=== PATIENT | male | born 1980 | race Caucasian/White ===

== ENCOUNTER 2016-10-14 16:21 | Emergency (ER) | payer OTHER ==
[2016-10-14 16:59] VITALS: BP 129/86
--- NOTE | 2016-10-14 18:10 | UC ---
Eye Complaint HPI - HPI Summary HPI Summary: had a small pustula on with right upper eye lid in the lashes--he opened it and now lid is a little red and swollen - History of Current Complaint Chief Complaint: UCSkin Stated Complaint: RT EYE SWELLING Time Seen by Provider: 10/14/16 17:57 Hx Obtained From: Patient Onset/Duration: Sudden Onset, Lasting Days, Still Present, Worse Since - today Timing: Constant Severity Initially: Mild Severity Currently: Mild Pain Intensity: 2 Pain Scale Used: 0-10 Numeric Location of Injury: Eye Lid (upper) Aggravating Factor(s): Nothing Alleviating Factor(s): Nothing Associated Signs And Symptoms: Positive: Negative - Allergies/Home Medications Allergies/Adverse Reactions: Allergies Allergy/AdvReac Type Severity Reaction Status Date / Time seasonal Allergy Sneezing Uncoded 10/14/16 17:00 PMH/Surg Hx/FS Hx/Imm Hx Previously Healthy: Yes - Surgical History Surgical History: None - Family History Known Family History: Positive: Cardiac Disease, Hypertension, Diabetes - Social History Occupation: Employed Full-time Lives: With Family Alcohol Use: None Substance Use Type: None Smoking Status (MU): Never Smoked Tobacco - Immunization History Most Recent Tetanus Shot: unknown Review of Systems Constitutional: Negative Skin: Negative Eyes: Negative, Eye Redness - right, Other - right lid with small amount of erythema and swelling ENT: Negative Respiratory: Negative Cardiovascular: Negative Gastrointestinal: Negative Genitourinary: Negative Motor: Negative Neurovascular: Negative Musculoskeletal: Negative Neurological: Negative Psychological: Negative All Other Systems Reviewed And Are Negative: Yes Physical Exam Triage Information Reviewed: Yes Appearance: Well-Appearing, No Pain Distress, Well-Nourished Vital Signs: Initial Vital Signs Temp 97.8 F 10/14/16 16:56 Pulse 79 10/14/16 16:56 Resp 18 10/14/16 16:56 BP 129/86 10/14/16 16:56 Vital Signs Reviewed: Yes Eye Exam: Normal Eyes: Positive: Other: - right upper lid near lashes with slight erythema and swelling ENT Exam: Normal ENT: Positive: Normal ENT inspection, Hearing grossly normal, Pharynx normal, TMs normal. Negative: Nasal congestion, Nasal drainage, Tonsillar swelling, Tonsillar exudate, Trismus, Muffled/hoarse voice Dental Exam: Normal Neck exam: Normal Neck: Positive: Supple, Nontender, No Lymphadenopathy Respiratory Exam: Normal Respiratory: Positive: Chest non-tender, Lungs clear, Normal breath sounds, No respiratory distress, No accessory muscle use Cardiovascular Exam: Normal Cardiovascular: Positive: RRR, No Murmur, Pulses Normal, Brisk Capillary Refill Musculoskeletal Exam: Normal Musculoskeletal: Positive: Strength Intact, ROM Intact, No Edema Neurological Exam: Normal Neurological: Positive: Alert, Muscle Tone Normal Psychological Exam: Normal Psychological: Positive: Normal Response To Family, Age Appropriate Behavior Skin Exam: Normal Eye Complaint Course/Dx - Course Course Of Treatment: warm compress and eye drops follow with pcp prn - Differential Dx/Diagnosis Differential Diagnosis/HQI/PQRI: Conjunctivitis, Periorbital Cellulitis, Orbital Cellulitis Provider Diagnoses: right eye Bletheritis Discharge - Discharge Plan Condition: Stable Disposition: HOME Prescriptions: Polymyx/Trimethoprim OPTH* [Polytrim OPHTH*] 1 drop RIGHT EYE SEE INSTRUCTIONS # 1 btl Patient Education Materials: Stye (ED), How to Use Eye Drops (ED), Warm Compress or Soak (ED) Referrals: AZUCENA Mehta [Primary Care Provider] - If Needed
== END 2016-10-14 18:17 | disposition home or self-care (01) ==
LOC: UCCORT 16:21
DX: H01.001 Unspecified blepharitis right upper eyelid (principal)
CPT/HCPCS: 99212; G0463

== ENCOUNTER 2017-11-08 17:14 | Emergency (ER) | payer OTHER ==
[2017-11-08 17:31] VITALS: BP 135/93
[2017-11-08] MEDS ORDERED: Ibuprofen TAB* 600 MG PO ONE (17:50)
[2017-11-08] MEDS ORDERED: Tetan/Diph/Pertus SYR(Tdap)* 0.5 ML SYR(BOOSTRIX) use SYR IM ONE (17:51)
--- NOTE | 2017-11-08 17:57 | UC ---
Complaint Male HPI - HPI Summary HPI Summary: The patient is a 37-year-old male who presents here for the evaluation of a painful scrotum. He states that approximately 2 PM today he applied near hair removal to his scrotum. After approximately a minute he experienced burning pain. He immediately washed been there off. He has not taken anything for the pain. He says his pain is a 3 or 4 out of 10. He is not a diabetic. He is unsure of his last tetanus shot. - History of Current Complaint Chief Complaint: UCSkin Stated Complaint: PERSONAL Time Seen by Provider: 11/08/17 17:20 Hx Obtained From: Patient Onset/Duration: Sudden Onset, Lasting Hours Timing: Constant Severity Initially: Moderate Severity Currently: Mild Pain Intensity: 3 Pain Scale Used: 0-10 Numeric Location: Scrotum Character: Burning Aggravating Factor(s): Other - touch Alleviating Factor(s): Other - cool compresses Associated Signs And Symptoms: Positive: Negative - Allergies/Home Medications Allergies/Adverse Reactions: Allergies Allergy/AdvReac Type Severity Reaction Status Date / Time seasonal Allergy Sneezing Uncoded 11/08/17 17:31 Home Medications: Home Medications NK [No Home Medications Reported] 11/08/17 [History Confirmed 11/08/17] PMH/Surg Hx/FS Hx/Imm Hx Previously Healthy: Yes - Surgical History Surgical History: None - Family History Known Family History: Positive: Cardiac Disease, Hypertension, Diabetes - Social History Alcohol Use: None Substance Use Type: None Smoking Status (MU): Never Smoked Tobacco - Immunization History Most Recent Tetanus Shot: unknown Review of Systems Constitutional: Negative Skin: Other - red scotrum Eyes: Negative ENT: Negative Respiratory: Negative Cardiovascular: Negative Gastrointestinal: Negative Genitourinary: Negative Motor: Negative Neurovascular: Negative Musculoskeletal: Negative Neurological: Negative Psychological: Negative Is Patient Immunocompromised?: No All Other Systems Reviewed And Are Negative: Yes Physical Exam Triage Information Reviewed: Yes Appearance: Well-Appearing, No Pain Distress, Well-Nourished Vital Signs: Initial Vital Signs Temp 97.1 F 11/08/17 17:25 Pulse 76 11/08/17 17:25 Resp 18 11/08/17 17:25 BP 135/93 11/08/17 17:25 Pulse Ox 97 11/08/17 17:25 Eyes: Positive: Conjunctiva Clear ENT: Positive: Pharynx normal. Negative: Nasal congestion, Nasal drainage, Muffled voice, Hoarse voice Neck: Positive: Supple Respiratory: Positive: Lungs clear, Normal breath sounds, No respiratory distress Cardiovascular: Positive: RRR, No Murmur Male Genital Exam: Positive: Other - fire engine red scrotum/no hair/no blisters. Negative: Inguinal Tenderness, Scrotum Tenderness (R), Scrotum Tenderness (L), Testicular Tenderness (R), Testicular Tenderness (L) Neurological: Positive: Alert Psychological Exam: Normal Skin Exam: Other - see gu Complaint Male Course/Dx - Differential Dx/Diagnosis Provider Diagnoses: chemical burn scrotum Discharge - Sign-Out/Discharge Documenting (check all that apply): Patient Departure - Discharge Plan Condition: Stable Disposition: HOME Patient Education Materials: Chemical Skin Burn (ED) Forms: *Work Release Referrals: ZAUCENA Mehta [Primary Care Provider] - 2 Days (if not improved) Additional Instructions: frequent cool compresses advil 3 4x day with for pain aquaphor healing ointment (OTC) recheck for new or worsening symptoms You BP was high today and should be rechecked in 2-4 weeks - Billing Disposition and Condition Condition: STABLE Disposition: Home
== END 2017-11-08 18:21 | disposition home or self-care (01) ==
LOC: UCCORT 17:14
DX: T21.56XA Corrosion of first degree of male genital region, initial encounter (principal); T32.0 Corrosions involving less than 10% of body surface; T79.8XXA Other early complications of trauma, initial encounter; Y93.E8 Activity, other personal hygiene; Y92.002 Bathroom of unspecified non-institutional (private) residence as the place of occurrence of the external cause
CPT/HCPCS: 90471; 90715; 99212; A9270-GY; G0463

== ENCOUNTER 2019-06-14 21:10 | Emergency (ER) | payer BC ==
[2019-06-14 21:28] VITALS: BP 134/79
--- NOTE | 2019-06-14 21:43 | UC ---
Throat Pain/Nasal James HPI - HPI Summary HPI Summary: 38-year-old male whose had a sore throat for approximately one week. He states that he's had different symptoms every day but sore throat has continued. He denies any fever or chills. He is occasionally he has productive cough of greenish brown sputum. - History of Current Complaint Chief Complaint: UCGeneralIllness Stated Complaint: SORE THROAT Time Seen by Provider: 06/14/19 21:34 Hx Obtained From: Patient Onset/Duration: Gradual Onset, Lasting Days Severity: Mild Pain Intensity: 0 Cough: Productive - Productive cough of greenish brown sputum sometimes. Associated Signs & Symptoms: Positive: Nasal Discharge - Allergies/Home Medications Allergies/Adverse Reactions: Allergies Allergy/AdvReac Type Severity Reaction Status Date / Time seasonal Allergy Sneezing Uncoded 06/14/19 21:28 Home Medications: Home Medications NK [No Home Medications Reported] 11/08/17 [History Confirmed 06/14/19] PMH/Surg Hx/FS Hx/Imm Hx Previously Healthy: Yes - Surgical History Surgical History: None - Family History Known Family History: Positive: Cardiac Disease, Hypertension, Diabetes - Social History Lives: With Family Alcohol Use: None Substance Use Type: None Smoking Status (MU): Never Smoked Tobacco - Immunization History Most Recent Tetanus Shot: unknown Review of Systems All Other Systems Reviewed And Are Negative: Yes ENT: Positive: Sore Throat, Nasal Discharge, Sinus Congestion Respiratory: Positive: Cough Is Patient Immunocompromised?: No Physical Exam Triage Information Reviewed: Yes Appearance: Well-Appearing, No Pain Distress, Well-Nourished Vital Signs: Initial Vital Signs Temp 97.6 F 06/14/19 21:21 Pulse 95 06/14/19 21:21 Resp 20 06/14/19 21:21 BP 134/79 06/14/19 21:21 Pulse Ox 99 06/14/19 21:21 Vital Signs Reviewed: Yes Eyes: Positive: Conjunctiva Clear ENT: Positive: Pharyngeal erythema - Minimal pharyngeal erythema., Nasal drainage - Clear nasal coryza, TMs normal, Uvula midline. Negative: Tonsillar swelling, Tonsillar exudate, Trismus, Muffled voice Neck: Positive: Supple, Nontender, No Lymphadenopathy Respiratory: Positive: Lungs clear, Normal breath sounds, No respiratory distress, No accessory muscle use Cardiovascular: Positive: RRR, No Murmur, Pulses Normal, Brisk Capillary Refill Musculoskeletal: Positive: Strength Intact, ROM Intact Neurological: Positive: Alert, Muscle Tone Normal Psychological Exam: Normal Skin Exam: Normal Throat Pain/Nasal Course/Dx - Course Course Of Treatment: Rapid strep test: Negative Patient is comfortable here and in no distress. - Differential Dx/Diagnosis Provider Diagnosis: URI (upper respiratory infection), Pharyngitis Discharge ED - Sign-Out/Discharge Documenting (check all that apply): Patient Departure All imaging exams completed and their final reports reviewed: No Studies - Discharge Plan Condition: Good Disposition: HOME Patient Education Materials: Upper Respiratory Infection (ED) Referrals: Jeffrey Guzman MD [Primary Care Provider] - Additional Instructions: Increase fluids, warm saltwater gargles, throat lozenges. Follow up with your primary care provider if no improvement in 3 or 4 days. - Billing Disposition and Condition Condition: GOOD Disposition: Home
== END 2019-06-14 21:53 | disposition home or self-care (01) ==
LOC: UCCORT 21:10
DX: J06.9 Acute upper respiratory infection, unspecified (principal); R05 Cough; Z91.09 Other allergy status, other than to drugs and biological substances
CPT/HCPCS: 87651; 99211; G0463